=== PATIENT | female | born 1950 ===

== ENCOUNTER 2017-11-19 10:03 | Emergency (ER) | payer MEDICARE ==
--- NOTE | 2017-11-19 10:05 | ER Report ---
History and Physical Time Seen By MD: 10:04 HPI/ROS CC: Cough HPI: 67 year old female, basically healthy presents to the emergency department with a two-week history of cough worse at night. Slightly productive. Body aches but no fever or chills. No nausea or vomiting, chest pain chest pressure, diarrhea. Patient states that her body aches are basically a 4-5 out of 10. There is no hematemesis or hemoptysis. No sick contacts. No alleviating factors. Coughing is worse at night. ROS: 12 point review of systems essentially negative other than what's mentioned in history of present illness. NURSES AND OLD MEDICAL RECORDS: Reviewed PMH: Reviewed SURGICAL HX: Reviewed FAMILY HX: Noncontributory SOCIAL HX: She denies Smoking alcohol or illicit drugs. She is . Lives at home. VITAL SIGNS: Reviewed CONSTITUTIONAL: 67-year-old female in minimal to moderate distress. PHYSICAL EXAM: HEENT: Pupils equal round reactive to light and accommodate, EOMI, tympanic membranes pearly white umbo present with good light reflex. Lips dry mucous membranes moist gums nonbleeding uvula midline and rises equally with phonation, oropharynx noninjected, teeth intact. NECK: Neck supple, thyroid not appreciated, anterior and posterior cervical lymphadenopathy not appreciated. Trachea midline and rises equally with phonation. CARDIAC: S1-S2 regular rate rhythm no murmurs rubs or gallops. LUNGS: Lungs clear bilaterally posteriorly in all hernandez. Good air movement. ABDOMEN: Abdomen soft, nondistended, bowel sounds active in all 4 quadrants, no bruits noted, no CVA tenderness. MUSCULOSKELETAL: Strength 5 out of 5 x 4 extremities, no deformities noted. NEUROLOGIC: Patient alert and oriented by 3 Allergies: Coded Allergies: No Known Drug Allergies (Unverified , 11/19/17) Home Meds Reported Medications [blood pressure] No Conflict Check 11/19/17 [cholesterol] No Conflict Check 11/19/17 Thyroid,Pork (NATURE-THROID) 81.25 Mg Tablet, 81.25 MG PO 11/19/17 Constitutional Vital Sign - Last 24 Hours 11/19/17 11/19/17 11/19/17 11/19/17 10:09 10:10 10:13 10:18 Temp 98.7 Pulse 72 81 71 Resp 18 17 B/P (MAP) 115/74 115/74 (88) Pulse Ox 93 92 88 O2 Delivery Room Air 11/19/17 11/19/17 11/19/17 11/19/17 10:20 10:23 10:33 10:38 Pulse 70 72 69 Resp 18 15 16 B/P (MAP) 112/54 (73) Pulse Ox 92 89 11/19/17 11/19/17 10:40 10:43 Pulse 67 Resp 14 B/P (MAP) 107/69 (82) Pulse Ox 89 Medical Decision Making ED Course/Re-evaluation ED Course I discussed with the patient this is most likely pertussis. Patient will be placed on Zithromax. Take as directed. Patient with a plan and in agreement. Re-evaluation MDM pneumonia, pertussis, bacterial infection. This most likely pertussis is pattern is more at night. Patient will be given Zithromax. Patient will plan and in agreement. Decision to Disposition Date: Nov 19, 2017 Decision to Disposition Time: 10:56 Depart Departure Latest Vital Signs Vital Signs Date Time Temp Pulse Resp B/P (MAP) Pulse Ox O2 Delivery O2 Flow Rate FiO2 11/19/17 10:43 67 14 89 11/19/17 10:40 107/69 (82) 11/19/17 10:09 98.7 Room Air Impression: Primary Impression: Pertussis Condition: Condition Unchanged Disposition: HOME OR SELF-CARE New Scripts Azithromycin (ZITHROMAX) 250 Mg Tablet 0 PO QDAY, #6 TAB 1 Refill Prov: MOON DOMINIQUE MD 11/19/17 Patient Instructions: Upper Respiratory Infection (ED) Additional Instructions: You have been Given Zithromax take as directed. Return to the emergency department if you have any further concerns. I and the staff wanted to thank you for allowing us to take care of your needs today in the emergency department at [facility]. We have tried to answer all of your questions and concerns. Please feel free to return to the emergency department for any further concerns or unanswered questions. MOON DOMINIQUE MD Nov 19, 2017 10:05
[2017-11-19] MEDS ORDERED: cholesterol (10:17)
[2017-11-19] MEDS ORDERED: blood pressure (10:17)
[2017-11-19] MEDS ORDERED: THYR81.2 PO (10:17)
[2017-11-19] MEDS ORDERED: AZIT-1 PO (10:57)
[2017-11-19 11:06] VITALS: BP 104/67
== END 2017-11-19 11:12 | disposition home or self-care (01) ==
LOC: ER 10:03
DX: A37.90 Whooping cough, unspecified species without pneumonia (principal)
CPT/HCPCS: 99283

== ENCOUNTER → 2018-02-09 | Outpatient (CLI) | payer MEDICARE ==
[~2018-02-09] MED LIST: ARMTHY90PT PO; AZIT-1 PO; LEVO88TA43 PO; LOSA50TA72 PO; PNEU0.5D3 IM; SIMV10TA98 PO; THYR81.2 PO; blood pressure; cholesterol
[2018-02-09 10:03] LABS: PLATELET COUNT, AUTOMATED 267 K/uL (150-450)
--- NOTE | 2018-02-09 10:16 | EKG ---
FACILITY: [facility] PATIENT NAME: ARACELI BOYLE : [id number] MR: [id number] V: [id number] EXAM DATE: ORDERING PHYSICIAN: BARRETT JOE TECHNOLOGIST: MELA Norwood Reason : MURMUR - Blood Pressure : / mmHG Vent. Rate : 062 BPM Atrial Rate : 062 BPM P-R Int : 142 ms QRS Dur : 084 ms QT Int : 434 ms P-R-T Axes : 071 -10 054 degrees QTc Int : 440 ms Normal sinus rhythm Low voltage QRS Cannot rule out Anterior infarct , age undetermined Abnormal ECG No previous ECGs available Confirmed by BARRETT JOE ([id number]) on 02/16/2018 9:28:16 AM Referred By: HEATH Confirmed By:BARRETT JOE
[2018-02-09 10:26] LABS: LDL CHOLESTEROL 80 mg/dl
--- NOTE | 2018-02-10 19:03 | RADIOLOGY IMAGING REPORT ---
FACILITY: [facility] - [place] PATIENT NAME: ARACELI BOYLE : [id number] MR: [id number] V: [id number] EXAM DATE: ORDERING PHYSICIAN: BARRETT JOE TECHNOLOGIST: Ivory Crews EXAMINATION:TWO-DIMENSIONAL ECHOCARDIOGRAPH REASON: HEART MURMUR 2D Measurements (normal values in centimeters) LV endLV endRV endVent.LV PostAorticLeftPercent DiastolicSystolicDiastolicSeptumWallRootAtriumShortening (3.5-5.7)(0.9-2.6)(0.6-1.1)(0.6-1.1)(2.0-3.7)(1.9-4.0)(25-35%) [id number]% STROKE VOLUME: 56ml ESTIMATED EJECTION FRACTION: 71% PARASTERNAL LONG AXIS: Overall left ventricular systolic function appears to be normal. Right ventricle is the upper range of normal in size. The other chamber sizes are normal. Aortic valve and mitral valve both appear to open normally. Color examination of the valves reveals only a trace of mitral insufficiency in this view. Right ventricle appears to contract normally and the TAPSE is measured at 2.7. PARASTERNAL SHORT AXIS: Overall left ventricular function appears to be normal. No wall motion abnormalities are noted. The right ventricle appears to be mildly enlarged. The aortic valve is trileaflet in configuration and appears to open normally. Pulmonic valve is not well seen but there is a trace of pulmonic insufficiency there is also a trace to mild amount of tricuspid insufficiency noted. APICAL FOUR AND TWO CHAMBER: Normal left ventricular ejection fraction. Aortic valve area and mitral valve area both measure within normal range of 2.1 and 3.6cm2 respectively. The left atrial and right atrial volumes are also measured within normal ranges at 26 and 19ml/m2. The tricuspid regurgitation Vmax is measured 2.31m/sec. The estimated right atrial pressure was 3mm Hg. A mild amount of tricuspid insufficiency was noted. SUBCOSTAL VIEW: No pericardial effusion was noted. No atrioseptal or ventriculoseptal defects were noted. Doppler examination of the mitral valve in diastole does reveal the A wave > E wave. OVERALL IMPRESSION: 1. Normal left ventricular ejection fraction of approximately 71% with a mild decrease in diastolic function. 2. Mild right ventricular enlargement with the other chamber sizes being normal. 3. A trileaflet aortic valve with no abnormalities. 4. A trace of mitral and pulmonic insufficiency with no stenosis of any of the valves but the pulmonic valve was not well seen. 5. A mild amount of tricuspid insufficiency with estimated right ventricular systolic pressure within normal range of 24mm Hg. No other abnormalities were noted. Dictated by: Chino Vigil M.D. on 02/10/2018 at 10:07 Transcribed by: ANA on 02/10/2018 at 13:05 Approved by: Chino Vigil M.D. on 02/10/2018 at 19:01 [facility]
== END ==
LOC: US 02:11
PROVIDERS: ATTEND Emergency Medicine
DX: Z12.11 Encounter for screening for malignant neoplasm of colon (principal); R94.31 Abnormal electrocardiogram [ECG] [EKG]; I10 Essential (primary) hypertension; E03.9 Hypothyroidism, unspecified
CPT/HCPCS: 36415; 82040; 82247; 82310; 82374; 82435; 82465; 82565; 82947; 83718; 84075; 84132; 84155; 84295; 84443; 84450; 84460; 84478; 84520; 85025; 93005; 93306

== ENCOUNTER → 2018-02-24 | Outpatient (REF) | payer MEDICARE ==
[~2018-02-24] MED LIST changes: +ATOR20TA65 PO
== END ==
LOC: ZZSENDIN 13:49
PROVIDERS: ATTEND Emergency Medicine
DX: Z12.11 Encounter for screening for malignant neoplasm of colon (principal)
CPT/HCPCS: 82274

== ENCOUNTER → 2018-03-03 | Outpatient (CLI) | payer MEDICARE ==
[~2018-03-03] MED LIST changes: +EZET10TA41 PO
== END ==
LOC: LAB 09:48
PROVIDERS: ATTEND Emergency Medicine
DX: Z12.11 Encounter for screening for malignant neoplasm of colon (principal)
CPT/HCPCS: 82274

== ENCOUNTER → 2018-04-05 | Outpatient (CLI) | payer MEDICARE | LOC: LAB 10:21 | PROVIDERS: ATTEND Emergency Medicine | DX: E78.5 Hyperlipidemia, unspecified (principal) | CPT/HCPCS: 36415; 82465; 83718; 84478 ==

== ENCOUNTER → 2018-05-11 | Outpatient (CLI) | payer MEDICARE ==
[~2018-05-11] MED LIST changes: +AMOX-559 PO
--- NOTE | 2018-05-11 11:50 | RADIOLOGY IMAGING REPORT ---
FACILITY: [facility] - [place] PATIENT NAME: Lesia Hancock : 1950 MR: [id number] V: [id number] EXAM DATE: ORDERING PHYSICIAN: BARRETT JOE TECHNOLOGIST: Location: [facility] Patient: Lesia Hancock : 1950 Visit/Account:[id number] Date of Sevice: 05/11/2018 Exam type: HAND LIMITED RIGHT History: Pain in first and second MCP joint, radiates to wrist with no known injury Comparison: None. Findings: Two views of the right hand demonstrate no evidence of acute fracture or dislocation. There are mild degenerative changes involving the second third DIP joints very mild generative changes seen at the first carpometacarpal articulation. The trabecular pattern of the lunate bone appears slightly heter ogeneous. This could be related to prior trauma or degenerative changes. IMPRESSION: 1. Mild degenerative changes as described Report Dictated By: Kayleigh Saenz MD at 05/11/2018 11:43 AM Report E-Signed By: Kayleigh Saenz MD at 05/11/2018 11:45 AM WSN:[email or web address]
== END ==
LOC: RAD 11:09
PROVIDERS: ATTEND Emergency Medicine
DX: M19.041 Primary osteoarthritis, right hand (principal)

== ENCOUNTER → 2019-02-08 | Outpatient (CLI) | payer MEDICARE ==
[~2019-02-08] MED LIST changes: -LOSA50TA72 PO; +LOSA50TA80 PO
[2019-02-08 10:53] LABS: PLATELET COUNT, AUTOMATED 304 K/uL (150-450)
[2019-02-08 11:31] LABS: LDL CHOLESTEROL 129 mg/dl
== END ==
LOC: LAB 10:38
PROVIDERS: ATTEND Emergency Medicine
DX: E03.9 Hypothyroidism, unspecified (principal); I10 Essential (primary) hypertension; E78.5 Hyperlipidemia, unspecified
CPT/HCPCS: 36415; 82040; 82247; 82310; 82374; 82435; 82465; 82565; 82947; 83718; 84075; 84132; 84155; 84295; 84443; 84450; 84460; 84478; 84520; 85025

== ENCOUNTER → 2019-05-23 | Outpatient (CLI) | payer MEDICARE ==
--- NOTE | 2019-05-23 11:46 | RADIOLOGY IMAGING REPORT ---
[place] [facility] [place] NAME: Lesia Hancock : 1950 MR: [id number] V: [id number] EXAM DATE: ORDERING PHYSICIAN: BARRETT JOE TECHNOLOGIST: Location: [facility] Patient: Lesia Hancock : 1950 Visit/Account:[id number] Date of Sevice: 05/23/2019 DEXA Scan Clinical history: Postmenopausal estrogen deficiency. Comparison: None available. LUMBAR SPINE: The bone mineral density (BMD) measured from L1-L4 correlates with a Z-score 0.4 and a T-score of -0. 9 which is Normal as defined by the World Health Organization. The corresponding risk of fracture in the lumbar spine is 1-2 times increased compared with a young adult reference population. HIP: Bone mineral density (BMD) measured in the Left total hip region correlates with a Z-score -0.1 and a T-score of there is 1.3 which is osteopenia as defined by the World Health Organization. The corres ponding risk of fracture in the hip is 2-3 times increased compared with a young adult reference popu [facility]. T score left femoral neck -1.7 Bone mineral density (BMD) measured in the Femoral Neck region measures 0.808 g/cm2. Impression: 1. Lumbar spine: Normal. 2. Left Hip: Normal. 3. Femoral Neck: Bone Mineral Density is 0.808 g/cm2 The next DEXA scan of this patient should include the following sites: L1-L4 and the left hip. FRAX? WHO Fracture Risk Assessment Tool link: <http://www.shef.ac.uk/FRAX/tool.jsp?locationValue=9> PLEASE NOTE: 1) The World Health Organization defines low BMD as follows: T-score Normal > -1 Osteopenia < -1 and > -2.5 Osteoporosis < -2.5 without fractures Established osteoporosis < -2.5 with fractures 2) In general, you may wish to consider: Diagnosis Treatment Follow-up DEXA Normal BMD Prevention 2-3 years Osteopenia Prevention/therapy 1-2 years Osteoporosis Therapy Yearly 3) Fracture risk estimated from the T-score is more accurate for vertebral fractures (often spontane ous) than for hip fractures. Report Dictated By: Kayleigh Saenz MD at 05/23/2019 11:36 AM Report E-Signed By: Kayleigh Saenz MD at 05/23/2019 11:38 AM WSN:[email or web address]
== END ==
LOC: LAB 09:43
PROVIDERS: ATTEND Emergency Medicine
DX: Z78.0 Asymptomatic menopausal state (principal)
CPT/HCPCS: 77080